=== PATIENT | male | born 1945 | race Two or more races ===

== ENCOUNTER 2021-07-17 09:32 | Emergency (ER) | payer OTHER ==
[~2021-07-17] VITALS: Ht 177.8 cm; Wt 113.4 kg
[~2021-07-17 09:32] MED LIST: KETO10TA2 PO; LEVAQUIN750 MG PO; MEDROLPACK PO; ORPH100T PO; TESSALON PERLE100 MG PO; TUSSI PRES-B L120 M1 PO; TUSSIONEX PENNKI5 ML PO
[2021-07-17] MEDS ORDERED: EXFORGE 10-1601 EACH PO (09:47)
[2021-07-17] MEDS ORDERED: NORFLEX100MG PO (10:20)
[2021-07-17] MEDS ORDERED: KETO10TA2 PO (10:20)
== END 2021-07-17 10:47 | disposition home or self-care (01) ==
LOC: ER 09:32
DX: M54.2 Cervicalgia (principal); M25.512 Pain in left shoulder; M25.511 Pain in right shoulder